=== PATIENT | female | born 2000 | race Caucasian/White ===

== ENCOUNTER 2019-03-22 15:36 | Emergency (ER) | payer MEDICAID, SELFPAY ==
[2019-03-22 15:37] VITALS: BP 106/63; PULSE 123; RESP 17; TEMP 36.7; O2SAT 98; BMI 35.6
--- NOTE | 2019-03-22 16:00 | ED.VISSUMM ---
- ER Visit Summary Date of Service: 03/22/19 Chief Complaint: Abdominal pain, nausea, vomiting History of Present Illness: The patient is a 18 F who is currently 19 weeks . Patient woke this morning with lower abdominal cramping, nausea, vomiting, and diarrhea. She denies any dysuria. No measured fever. She denies vaginal bleeding and has felt normal movement. Physical Examination: Vital signs significant for heart rate of 123, otherwise unremarkable. Patient lying in bed no acute distress. She is nontoxic-appearing. Heart is tachycardic and regular. Lungs sounds clear. Abdomen soft and gravid. She has minimal suprapubic tenderness. No guarding or rebound. Hypoactive bowel sounds are present throughout. Test Results: CBC was a white count of 14.2 with 95% neutrophils. Chemistry studies unremarkable. Urinalysis shows 150 ketones with 0-5 white cells and 0-5 epithelials. heart tones are 152. Emergency Department Course and Treatment: Patient is given IV fluids and Phenergan. On repeat evaluation she feels significant improved. She is able to tolerate p.o. challenge. Repeat heart rate is 84. I will speak with OB to update them on the patient's current symptoms. Patient be discharged with a prescription for Phenergan. Treatment Plan: [] Disposition: Discharge Impression: 1. Viral gastroenteritis 2. Second trimester This note was generated with [employer] dictation software. It may contain incorrect words, spelling, and punctuation that were not noted in review of the chart prior to signing ED Disposition - Plan for ED Patient: Disposition: Home or Assisted Living Instructions: ED Gastroenteritis Viral Prescriptions: proMETHazine tablet [Phenergan] 25 mg PO Q6H PRN PRN #10 tablet PRN Reason: Nausea Referrals: Keturah Blancas DO [STAFF PHYSICIAN] - 3-5 Days
[2019-03-22] MEDS: proMETHazine 25 MG/ML Syringe 12.5 MG IV (16:23)
[2019-03-22] MEDS: 0.9% Normal Saline 1,000 ML 1000 ML IV (16:23)
[2019-03-22 16:37] LABS: Mucous, Urine 0 SEEN /hpf (<or=2+); Red Blood Cells-Urine 0 SEEN /hpf (0-5)
[2019-03-22 16:42] LABS: Absolute Lymphocyte Count 0.32 X10^3/ul (0.83-4.51); Absolute Neutrophil Count 13.5 X10^3/uL (2.0-7.7); Basophil# 0.02 X10^3/uL; Basophil% 0.1 % (0-1); Eosinophil# 0.01 X10^3/uL; Eosinophils% 0.1 % (0-5); Hematocrit 37.9 % (37-47); Hemoglobin 13.3 g/dl (12.0-15.0); Lymphocyte # 0.32 X10^3/ul (4.0); Lymphocyte % 2.2 % (19-41); Mean Corp Hgb Conc 35.1 g/gl (32-36); Mean Corpuscular Hgb 30.9 pg (27.0-32.0); Mean Corpuscular Volume 88.1 fL (81-99); Monocyte# 0.37 X10^3/uL; Monocyte% 2.6 % (0-10); Neutrophil # 13.47 X10^3/uL (2.7-7.7); Neutrophil % 94.7 % (47-70); Platelet Count 197 K/mm3 (150-450); RBC Distribution Width SD 40.5 fl (35.1-43.9); White Blood Count 14.2 K/mm3 (4.4-11.0)
[2019-03-22 16:47] LABS: Anion Gap 10 (5-15); BUN 9 mg/dL (7-18); BUN/Creat Ratio 15.3 RATIO (10-20); Calcium,Total 8.9 mg/dL (8.5-10.1); Chloride 106 mmol/L (98-107); Creatinine, Serum 0.59 mg/dL (0.55-1.02); EST Glomerular Filtration Rate 138 mL/min (>60); Est Glom Filt Rate - Afr Amer 167 mL/min (>60); Estimated Creatinine Clearance 131.34 ml/min; Glucose 88 mg/dL (74-106); Potassium 3.9 mmol/L (3.5-5.1); Sodium Level 137 mmol/L (136-145)
[2019-03-22 16:51] LABS: Differential Indicated SCAN CRITERIA MET; POSITIVE COUNT NO; POSITIVE DIFFERENTIAL YES; POSITIVE MORPHOLOGY NO
[2019-03-22 17:09] LABS: Color, Urine Yellow (Yellow); Glucose, Dipstick Normal (Normal); Leukocyte Esterase-Dipstick 25 /ul (Negative); Nitrite-Dipstick Negative (Negative); Occult Blood-Urine Negative /ul (Negative); Protein-Dipstick Negative (Negative); Specific Gravity, Urine 1.015 (1.002-1.030); Urine Clarity Clear (Clear); Urine Urobilinogen Normal (Normal)
[2019-03-22 17:10] LABS: Urine Bilirubin Dipstick 1 mg/dL (Negative)
[2019-03-22 17:11] LABS: Differential Comment SCANNED
[2019-03-22 17:11] LABS: Ketone-Dipstick 150 mg/dl (Negative)
[2019-03-22 17:14] LABS: Bacteria 1+ /hpf (None Seen); Squamous Epithelial Cells - UA 0-5 SEEN /hpf (5-10); White Blood Cells 0-5 SEEN /hpf (0-5)
[2019-03-22 17:46] VITALS: BP 108/58; PULSE 84; RESP 18; O2SAT 99
[2019-03-22 18:38] VITALS: BP 99/56; PULSE 85; RESP 16; O2SAT 100
== END 2019-03-22 18:39 | disposition home or self-care (01) ==
PROVIDERS: Emergency Provider Emergency Medicine
DX: O98.512 Other viral diseases complicating pregnancy, second trimester (principal); A08.4 Viral intestinal infection, unspecified; Z3A.19 19 weeks gestation of pregnancy; Z87.891 Personal history of nicotine dependence
CPT/HCPCS: 80048; 81001; 85025; 96361; 96374; 99284; J7030

== ENCOUNTER 2019-04-27 15:55 | Inpatient (IN) | payer MEDICAID, SELFPAY ==
[2019-04-27 15:57] VITALS: BP 111/68; PULSE 144; RESP 18; TEMP 37.5; O2SAT 99; BMI 36.1
[2019-04-27] MEDS: Ondansetron 4 MG/2 ML Vial IV (16:52)
[2019-04-27] MEDS: Morphine 4 MG/ML Syringe IV (16:52)
[2019-04-27 16:56] LABS: Absolute Lymphocyte Count 0.53 X10^3/ul (0.83-4.51); Absolute Neutrophil Count 18.4 X10^3/uL (2.0-7.7); Basophil# 0.01 X10^3/uL; Hematocrit 30.7 % (37-47); Hemoglobin 10.7 g/dl (12.0-15.0); Lymphocyte # 0.53 X10^3/ul (4.0); Lymphocyte % 2.5 % (19-41); Mean Corp Hgb Conc 34.9 g/gl (32-36); Mean Corpuscular Hgb 31.6 pg (27.0-32.0); Mean Corpuscular Volume 90.6 fL (81-99); Mean Platelet Vol. 10.3 fl (6.2-12.0); Monocyte# 1.94 X10^3/uL; Monocyte% 9.3 % (0-10); Neutrophil % 87.8 % (47-70); Platelet Count 189 K/mm3 (150-450); RBC Distribution Width CV 13.6 % (11.6-14.6); RBC Distribution Width SD 44.5 fl (35.1-43.9); Red Blood Count 3.39 M/mm3 (4.2-5.4)
[2019-04-27 16:57] LABS: Differential Indicated SCAN CRITERIA MET; POSITIVE COUNT NO; POSITIVE DIFFERENTIAL YES; POSITIVE MORPHOLOGY NO
[2019-04-27 17:01] LABS: Anion Gap 11 (5-15); BUN 7 mg/dL (7-18); BUN/Creat Ratio 10.2 RATIO (10-20); Calcium,Total 8.8 mg/dL (8.5-10.1); Chloride 103 mmol/L (98-107); Creatinine, Serum 0.69 mg/dL (0.55-1.02); EST Glomerular Filtration Rate 115 mL/min (>60); Est Glom Filt Rate - Afr Amer 139 mL/min (>60); Estimated Creatinine Clearance 112.31 ml/min; Glucose 94 mg/dL (74-106); Potassium 3.4 mmol/L (3.5-5.1); Sodium Level 136 mmol/L (136-145)
[2019-04-27 17:24] LABS: Color, Urine Amber (Yellow); Glucose, Dipstick Normal (Normal); Ketone-Dipstick 50 mg/dl (Negative); Leukocyte Esterase-Dipstick 100 /ul (Negative); Nitrite-Dipstick Negative (Negative); Occult Blood-Urine 10 /ul (Negative); Protein-Dipstick 100 mg/dl (Negative); Urine Clarity Sl. Cloudy (Clear); Urine Urobilinogen 4 mg/dl (Normal)
[2019-04-27 17:32] LABS: Urine Bilirubin Dipstick 1 mg/dL (Negative)
[2019-04-27 17:41] LABS: White Blood Cells 10-25 SEEN /hpf (0-5)
[2019-04-27 17:42] LABS: Bacteria 3+ /hpf (None Seen); Mucous, Urine 1+ /hpf (<or=2+); Red Blood Cells-Urine 0-5 SEEN /hpf (0-5); Squamous Epithelial Cells - UA 0-5 SEEN /hpf (5-10)
[2019-04-27] MEDS: 0.9% Normal Saline 1,000 ML 150 ML IV (18:05)
[2019-04-27 18:07] VITALS: BP 116/66; PULSE 106; RESP 16; TEMP 38.5; O2SAT 100
[2019-04-27 18:09] VITALS: BP 116/66; PULSE 109; RESP 16; O2SAT 100
--- NOTE | 2019-04-27 18:12 | ED.RN ---
dr white consulted about possible sepsis. states she is not septic. just with julio. antibiotic order. waiting additional orders.
--- NOTE | 2019-04-27 18:26 | ED.VISSUMM ---
- ER Visit Summary Date of Service: 04/27/19 Chief Complaint: Right flank pain History of Present Illness: The patient is a 18 F who is currently 24 weeks . She reports right back pain for the past couple of days. It is worse with movement. She denies any injury. She does report having a fever yesterday and today has had some chills. She last took Tylenol 6 hours prior to my evaluation. She denies any urinary symptoms. She has been feeling normal movement. Physical Examination: Blood pressure is 111/68, temperature 99.5 TA, heart rate 144, respiratory rate 18, pulse ox 99% on room air. The time of my examination her temperature is 99.2 orally and her heart rate is 128. Patient is sitting upright in bed no acute distress. She is nontoxic appearing. Head and neck examination is unremarkable. Heart is tachycardic and regular. Lung sounds are clear. Abdomen is soft and nontender. Back examination reveals right CVA tenderness. Test Results: CBC was a white count of 21,000 with 88% neutrophils. Hemoglobin is 10.7. Chemistry studies significant for potassium 3.4. Urinalysis does show 10-25 white cells with 3+ bacteria. Emergency Department Course and Treatment: Patient was given morphine and Zofran for pain and nausea along with IV fluids. On my initial repeat examination blood pressure is 121/67 with a heart rate of 108. heart tones are measured at 152. Patient was ordered a dose of IV Rocephin, but before it was hung temperature was rechecked and is 101.3. Patient is given Tylenol this time along with ordering of lactic acid and blood cultures. I spoke with Marleny Morgan, on-call for [facility] DIGITAL MARKETING COORDINATOR. Patient will be admitted to [facility] [place] under Dr. Chen. Treatment Plan: [] Disposition: Admit Impression: 1. Pyelonephritis 2. 24-week This note was generated with [employer] dictation software. It may contain incorrect words, spelling, and punctuation that were not noted in review of the chart prior to signing ED Disposition - Plan for ED Patient: Referrals: Care Physician,No Primary [Primary Care Provider] -
--- NOTE | 2019-04-27 18:29 | ED.DCSUM_ITS ---
- ER Visit Summary Date of Service: 04/27/19 Chief Complaint: Right flank pain History of Present Illness: The patient is a 18 F who is currently 24 weeks . She reports right back pain for the past couple of days. It is worse with movement. She denies any injury. She does report having a fever yesterday and today has had some chills. She last took Tylenol 6 hours prior to my evaluation. She denies any urinary symptoms. She has been feeling normal movement. Physical Examination: Blood pressure is 111/68, temperature 99.5 TA, heart rate 144, respiratory rate 18, pulse ox 99% on room air. The time of my examination her temperature is 99.2 orally and her heart rate is 128. Patient is sitting upright in bed no acute distress. She is nontoxic appearing. Head and neck examination is unremarkable. Heart is tachycardic and regular. Lung sounds are clear. Abdomen is soft and nontender. Back examination reveals right CVA tenderness. Test Results: CBC was a white count of 21,000 with 88% neutrophils. Hemoglobin is 10.7. Chemistry studies significant for potassium 3.4. Urinalysis does show 10-25 white cells with 3+ bacteria. Emergency Department Course and Treatment: Patient was given morphine and Zofran for pain and nausea along with IV fluids. On my initial repeat examination blood pressure is 121/67 with a heart rate of 108. heart tones are measured at 152. Patient was ordered a dose of IV Rocephin, but before it was hung temperature was rechecked and is 101.3. Patient is given Tylenol this time along with ordering of lactic acid and blood cultures. I spoke with Marleny Morgan, on-call for [facility] HAND MODEL. Patient will be admitted to [facility] [place] under Dr. Chen. Treatment Plan: [] Disposition: Admit Impression: 1. Pyelonephritis 2. 24-week This note was generated with [employer] dictation software. It may contain incorrect words, spelling, and punctuation that were not noted in review of the chart prior to signing ED Disposition - Plan for ED Patient: Referrals: Care Physician,No Primary [Primary Care Provider] -
--- NOTE | 2019-04-27 18:39 | NURSING ---
2 attempts made to draw second set of cultures. second rn to attempt. jessy solis rn [id number]
[2019-04-27] MEDS: Acetaminophen 500 MG Tablet 1000 MG PO ×2 (18:44→23:27)
[2019-04-27] MEDS: Ceftriaxone 1 GM/50 ML BAG IV (18:50)
[2019-04-27 18:56] VITALS: BP 115/69; PULSE 119; RESP 16; O2SAT 100
[2019-04-27 19:00] LABS: Lactic Acid 1.1 mmol/L (0.4-2.0)
[2019-04-27 19:15] VITALS: BP 102/63; PULSE 118; RESP 19; TEMP 39.4; O2SAT 99
--- NOTE | 2019-04-27 19:41 | PCM.HP.OB ---
<Marleny Morgan - Last Filed: 04/27/19 20:18> - Problem List (1) Pyelonephritis affecting in second trimester Status: Acute (2) 24 weeks gestation of Status: Acute History Date of Admission: 04/27/19 Final HOLLI: 05/11/19 Gestational age: 38 Weeks and 0 Days History of this : This is a 18 year-old, G [1], P [0], at 24 weeks 6 days gestational age by ultrasound. Presented to ER with complaint of right sided flank pain for past couple of days and worse with movement. No recent injury. Reported in ER she had a fever yesterday with chills. Denied any uriary symptoms. Good movement, denies abdominal pain or contractions, no leakage of fluid. Upon presentation was tachycardic, febrile and had right sided CVAT tenderness. CBC showed elevated WBC of 21. Decision to admit to L&D for pyelonephritis. Upon presentation to L&D, patient comfortable, rating pain 3/10. Partner at bedside. Allergies No Known Allergies Allergy (Verified 03/22/19 15:37) Home Medications: Home Medications Vits [Prenatabs FA] 1 tablet PO DAILY 03/22/19 Smoking Status: Former smoker Alcohol: None History Past Pregnancies: Past Pregnancies Delivery Date Name GA/Weeks Outcome Route Weight Infant Gender Labor Length Anesthesia Delivery Location Provider FOB Review of Systems Constitutional: Denies: Chills, Fever, Weight Change Eyes: Denies: Blurred vision HEENT: Denies: Head Aches, Sinus Congestion, Sinus Drainage Cardiovascular: Denies: Chest Pain, Palpitations Respiratory: Denies: Cough, Shortness of breath at rest, Sputum production Gastrointestinal: Reports: - - Right sided CVAT. No left CVAT. Denies: Abdominal Pain, Nausea, Vomiting Genitourinary: Denies: Dysuria, Frequency, Hematuria, Urgency Physical Exam Vitals: Vital Signs Temp Pulse Resp BP Pulse Ox 102.9 F H 118 H 19 H 102/63 99 04/27/19 19:15 04/27/19 19:15 04/27/19 19:15 04/27/19 19:15 04/27/19 19:15 General: Alert, Oriented x3, No apparent distress HEENT: Atraumatic, Normocephalic Cardiovascular: Regular Rhythm, No murmurs, - - Tachycardic 113 Lungs: Clear to auscultation, Normal air movement, No rhonchi, No wheeze Abdomen: Bowel Sounds Present, Soft, Non Tender, - - Right sided CVAT. No left sided CVAT Extremities:: No edema Neurological: Deep Tendon Reflexes 2+/4 and Symmetrical Assessment/Plan All Active Problems Pyelonephritis affecting in second trimester (Acute) 24 weeks gestation of (Acute) This is a 18 year-old, G [1], P [0], at weeks gestational age. A:Acute Pyelonephritis P: 1) Admit to L&D. 2) Consulted regarding admission and referral for management. Orders received and initial assessment completed. 3) Gentamcin 5mg/kg x 1 IVBP, pharmacy to dose. 4) Zofran 4mg IV q6h for nausea 5) Oxycodone 5mg PO q6h for pain 6) CBC in am 7) Tylenol 1000mg PO q6h for fever. Temp down from 102.9 in ER to 101.4 upon arrival to L&D <Partha Chen - Last Filed: 04/27/19 22:47> History History of this : This is a 18 year-old, G [], P [], at weeks gestational age. Allergies No Known Allergies Allergy (Verified 04/27/19 20:25) History Past Pregnancies: Past Pregnancies Delivery Date Name GA/Weeks Outcome Route Weight Gender Labor Length Anesthesia Delivery Location Provider FOB Physical Exam Vitals: Vital Signs Temp Pulse Resp BP Pulse Ox 102.9 F H 118 H 19 H 102/63 99 04/27/19 19:15 04/27/19 19:15 04/27/19 19:15 04/27/19 19:15 04/27/19 19:15 Assessment/Plan Patient seen & examined. Patient clinically improving. Agree with above. Plan of care discussed with Marleny Morgan earlier. Will start ancef IV.
[2019-04-27 20:26] VITALS: BMI 36.0
[2019-04-27] MEDS: proMETHazine 25 MG/ML Syringe IV (23:27)
[2019-04-27] MEDS: DiphenhydrAMINE 25 MG Capsule PO (23:27)
[2019-04-28] MEDS: 0.9% Normal Saline 1,000 ML 150 ML IV ×2 (04:55→12:23)
[2019-04-28] MEDS: Cefazolin 2 GM in 0.9% Normal Saline 100 ML IV ×3 (06:14→21:51)
[2019-04-28 07:10] LABS: Absolute Lymphocyte Count 0.67 X10^3/ul (0.83-4.51); Absolute Neutrophil Count 12.8 X10^3/uL (2.0-7.7); Basophil# 0.02 X10^3/uL; Basophil% 0.1 % (0-1); Hematocrit 26.6 % (37-47); Hemoglobin 9.5 g/dl (12.0-15.0); Lymphocyte # 0.67 X10^3/ul (4.0); Lymphocyte % 4.6 % (19-41); Mean Corp Hgb Conc 35.7 g/gl (32-36); Mean Corpuscular Hgb 32.6 pg (27.0-32.0); Mean Corpuscular Volume 91.4 fL (81-99); Mean Platelet Vol. 10.2 fl (6.2-12.0); Monocyte# 1.13 X10^3/uL; Monocyte% 7.7 % (0-10); Neutrophil # 12.79 X10^3/uL (2.7-7.7); Neutrophil % 87.1 % (47-70); Platelet Count 146 K/mm3 (150-450); RBC Distribution Width CV 13.8 % (11.6-14.6); RBC Distribution Width SD 45.8 fl (35.1-43.9); Red Blood Count 2.91 M/mm3 (4.2-5.4); White Blood Count 14.7 K/mm3 (4.4-11.0)
[2019-04-28 07:14] LABS: POSITIVE COUNT NO; POSITIVE DIFFERENTIAL NO; POSITIVE MORPHOLOGY NO
[2019-04-28] MEDS: Acetaminophen 500 MG Tablet 1000 MG PO ×2 (08:50→17:13)
--- NOTE | 2019-04-28 17:18 | PCM.PN.OB ---
Patient Problems: Active and Suspected Problems Pyelonephritis affecting in second trimester (Acute) 24 weeks gestation of (Acute) Subjective: Patient reports some back pain. Denies VB/LOF/ctxs. Reports good FM. - Physical Exam General: Alert, Oriented x3 Abdomen: Soft, Non Tender, Non-Distended, Gravid Extremities: No edema, No Calf Tenderness Neurological: Cranial nerves II-XII grossly intact Psych/Mental Status: Normal Affect Vital Signs Temp Pulse Resp BP Pulse Ox 102.9 F H 118 H 19 H 102/63 99 04/27/19 19:15 04/27/19 19:15 04/27/19 19:15 04/27/19 19:15 04/27/19 19:15 Oxygen Delivery Method Room Air Weight: 210 lb Body Mass Index (BMI) 36.0 Intake and Output for Last 24 Hours 04/26/19 04/27/19 04/28/19 23:59 23:59 23:59 Intake Total 1140 / 1140 Balance 1140 / 1140 Laboratory Tests Past 24 Hrs 04/27/19 04/27/19 04/27/19 16:43 17:00 18:23 WBC RBC Hgb Hct MCV MCH MCHC RDW RDW Differential Plt Count MPV Immature Gran % (Auto) Neut % (Auto) Lymph % (Auto) [place] % (Auto) Eos % (Auto) Baso % (Auto) Absolute Neuts (auto) Absolute Lymphs (auto) Total Counted Not Reportable Diff Path Review May foll Lactic Acid 1.1 Urine Color Ellie Urine Clarity Sl. Cloudy Urine pH 5.0 Ur Specific [place] 1.020 Urine Protein 100 H Urine Glucose (UA) Normal Urine Ketones 50 H Urine Occult Blood 10 H Urine Nitrite Negative Urine Bilirubin 1 H Urine Urobilinogen 4 H Ur Leukocyte Esterase 100 H Urine RBC 0-5 SEEN Urine WBC 10-25 SEEN Ur Squamous Epith Cells 0-5 SEEN Urine Bacteria 3+ Urine Mucus 1+ 04/28/19 06:55 WBC 14.7 H RBC 2.91 L Hgb 9.5 L Hct 26.6 L MCV 91.4 MCH 32.6 H MCHC 35.7 RDW 13.8 RDW Differential 45.8 H Plt Count 146 L MPV 10.2 Immature Gran % (Auto) 0.500 Neut % (Auto) 87.1 H Lymph % (Auto) 4.6 L [place] % (Auto) 7.7 Eos % (Auto) 0.0 Baso % (Auto) 0.1 Absolute Neuts (auto) 12.8 H Absolute Lymphs (auto) 0.67 L Total Counted Not Reportable Diff Path Review Lactic Acid Urine Color Urine Clarity Urine pH Ur Specific [place] Urine Protein Urine Glucose (UA) Urine Ketones Urine Occult Blood Urine Nitrite Urine Bilirubin Urine Urobilinogen Ur Leukocyte Esterase Urine RBC Urine WBC Ur Squamous Epith Cells Urine Bacteria Urine Mucus Medical Necessity - Tobacco Use Smoking Status: Former smoker Assessment/Plan All Active Problems Pyelonephritis affecting in second trimester (Acute) 24 weeks gestation of (Acute) 18yo female @ 24 weeks admitted with pyelonephritis ID - contine gentamycin & ancef. Hypokalemia - potassium in IV fluids. Repeat in AM. Encouraged ambulation. FWB - reactive NST for GA.
[2019-04-29 05:03] LABS: Absolute Lymphocyte Count 0.98 X10^3/ul (0.83-4.51); Absolute Neutrophil Count 7.5 X10^3/uL (2.0-7.7); Basophil# 0.02 X10^3/uL; Basophil% 0.2 % (0-1); Eosinophil# 0.02 X10^3/uL; Eosinophils% 0.2 % (0-5); Hematocrit 25.9 % (37-47); Hemoglobin 8.7 g/dl (12.0-15.0); Lymphocyte # 0.98 X10^3/ul (4.0); Lymphocyte % 10.5 % (19-41); Mean Corp Hgb Conc 33.6 g/gl (32-36); Mean Corpuscular Hgb 31.2 pg (27.0-32.0); Mean Corpuscular Volume 92.8 fL (81-99); Mean Platelet Vol. 10.9 fl (6.2-12.0); Monocyte# 0.78 X10^3/uL; Monocyte% 8.4 % (0-10); Neutrophil # 7.49 X10^3/uL (2.7-7.7); Neutrophil % 80.3 % (47-70); Platelet Count 151 K/mm3 (150-450); RBC Distribution Width CV 13.7 % (11.6-14.6); RBC Distribution Width SD 44.9 fl (35.1-43.9); Red Blood Count 2.79 M/mm3 (4.2-5.4); White Blood Count 9.3 K/mm3 (4.4-11.0)
[2019-04-29 05:08] LABS: POSITIVE COUNT NO; POSITIVE DIFFERENTIAL NO; POSITIVE MORPHOLOGY NO
[2019-04-29 05:16] LABS: Anion Gap 11 (5-15); BUN 5 mg/dL (7-18); BUN/Creat Ratio 10.8 RATIO (10-20); Calcium,Total 8.3 mg/dL (8.5-10.1); Chloride 108 mmol/L (98-107); Creatinine, Serum 0.46 mg/dL (0.55-1.02); EST Glomerular Filtration Rate 181 mL/min (>60); Est Glom Filt Rate - Afr Amer 219 mL/min (>60); Estimated Creatinine Clearance 168.46 ml/min; Glucose 86 mg/dL (74-106); Potassium 3.2 mmol/L (3.5-5.1); Sodium Level 139 mmol/L (136-145)
[2019-04-29] MEDS: Cefazolin 2 GM in 0.9% Normal Saline 100 ML IV ×3 (05:57→21:55)
--- NOTE | 2019-04-29 08:46 | PCM.PN.OB ---
Patient Problems: Active and Suspected Problems Pyelonephritis affecting in second trimester (Acute) 24 weeks gestation of (Acute) Subjective: pt seen at bedside, doing well. pt reports no CP, SOB, dizziness. Pt reports only mild right sided back pain. no abdominal pain, no contractions, no VB or LOF. pt reports good FM. - Physical Exam General: Alert, Oriented x3 Abdomen: Soft, Non Tender, Gravid Extremities: No Calf Tenderness Neurological: Cranial nerves II-XII grossly intact Psych/Mental Status: Normal Affect, Appropriate Comment: Mild Right CVA tenderness, Vital Signs Temp Pulse Resp BP Pulse Ox 102.9 F H 118 H 19 H 102/63 99 04/27/19 19:15 04/27/19 19:15 04/27/19 19:15 04/27/19 19:15 04/27/19 19:15 Oxygen Delivery Method Room Air Weight: 95.254 kg Body Mass Index (BMI) 36.0 Intake and Output for Last 24 Hours 04/27/19 04/28/19 04/29/19 23:59 23:59 23:59 Intake Total 1140 / 1140 1506 / 1506 Balance 1140 / 1140 1506 / 1506 Microbiology Past 72 Hours 04/27/19 18:47 Blood Culture - Preliminary Blood Culture (Wb) - Venous Gram negative katya Laboratory Tests Past 24 Hrs 04/29/19 04/29/19 04:45 04:45 WBC 9.3 RBC 2.79 L Hgb 8.7 L Hct 25.9 L MCV 92.8 MCH 31.2 MCHC 33.6 RDW 13.7 RDW Differential 44.9 H Plt Count 151 MPV 10.9 Immature Gran % (Auto) 0.400 Neut % (Auto) 80.3 H Lymph % (Auto) 10.5 L [place] % (Auto) 8.4 Eos % (Auto) 0.2 Baso % (Auto) 0.2 Absolute Neuts (auto) 7.5 Absolute Lymphs (auto) 0.98 Total Counted Not Reportable Sodium 139 Potassium 3.2 L Chloride 108 H Carbon Dioxide 20.0 L Anion Gap 11 BUN 5 L Creatinine 0.46 L Estim Creat Clear Calc 168.46 Est GFR (MDRD) Af Amer 219 Est GFR (MDRD) Non-Af 181 BUN/Creatinine Ratio 10.8 Glucose 86 Calcium 8.3 L Medical Necessity - Tobacco Use Smoking Status: Former smoker Assessment/Plan All Active Problems Pyelonephritis affecting in second trimester (Acute) 24 weeks gestation of (Acute) HD#1- Pyelonephritis, Septicemia 1) continue IV abx-Ancef and Gentamycin 2) Repeat CBC and BMP in early 3) hypokalemia- will Start PO Potassium today 4) IVF - saline lock 5) discussed with patient - will stay overnight to monitor- consider 48hr after last fever 6) Blood cultures- gram neg rods- awaiting susceptibility
[2019-04-29] MEDS: Ferrous Sulfate 325 MG Tablet PO ×2 (11:01→18:09)
[2019-04-29 13:17] LABS: Pathologist Review Reviewed
[2019-04-30 05:44] LABS: Anion Gap 8 (5-15); BUN 5 mg/dL (7-18); BUN/Creat Ratio 12.3 RATIO (10-20); Calcium,Total 8.6 mg/dL (8.5-10.1); Chloride 109 mmol/L (98-107); Creatinine, Serum 0.41 mg/dL (0.55-1.02); EST Glomerular Filtration Rate 210 mL/min (>60); Est Glom Filt Rate - Afr Amer 254 mL/min (>60); Glucose 73 mg/dL (74-106); Potassium 3.6 mmol/L (3.5-5.1); Sodium Level 140 mmol/L (136-145)
[2019-04-30 05:52] LABS: Absolute Lymphocyte Count 1.79 X10^3/ul (0.83-4.51); Absolute Neutrophil Count 4.7 X10^3/uL (2.0-7.7); Basophil# 0.03 X10^3/uL; Basophil% 0.4 % (0-1); Eosinophil# 0.11 X10^3/uL; Eosinophils% 1.5 % (0-5); Hematocrit 25.5 % (37-47); Hemoglobin 8.6 g/dl (12.0-15.0); Lymphocyte # 1.79 X10^3/ul (4.0); Lymphocyte % 24.2 % (19-41); Mean Corp Hgb Conc 33.7 g/gl (32-36); Mean Corpuscular Hgb 31.2 pg (27.0-32.0); Mean Corpuscular Volume 92.4 fL (81-99); Mean Platelet Vol. 10.6 fl (6.2-12.0); Monocyte# 0.75 X10^3/uL; Monocyte% 10.1 % (0-10); Neutrophil # 4.65 X10^3/uL (2.7-7.7); Neutrophil % 62.9 % (47-70); Platelet Count 168 K/mm3 (150-450); RBC Distribution Width CV 13.9 % (11.6-14.6); RBC Distribution Width SD 47.1 fl (35.1-43.9); Red Blood Count 2.76 M/mm3 (4.2-5.4); White Blood Count 7.4 K/mm3 (4.4-11.0)
[2019-04-30 06:06] LABS: POSITIVE COUNT NO; POSITIVE DIFFERENTIAL NO; POSITIVE MORPHOLOGY NO
[2019-04-30] MEDS: Cefazolin 2 GM in 0.9% Normal Saline 100 ML IV ×2 (06:09→14:46)
--- NOTE | 2019-04-30 07:21 | PCM.PN.OB ---
Patient Problems: Active and Suspected Problems Pyelonephritis affecting in second trimester (Acute) 24 weeks gestation of (Acute) Subjective: Pt doing well. She states she feels improved. No fevers, chills, nausea, vomiting, or pain. No ctx, vb, lof. Good FM. - Physical Exam General: Alert, No apparent distress HEENT: Atraumatic Lungs: - - No increased resp effort Abdomen: Soft, Non Tender, Gravid Extremities: No edema Musculoskeletal: - - No CVA tenderness Neurological: Neuro grossly intact Psych/Mental Status: Normal Affect, Appropriate Vital Signs Temp Pulse Resp BP Pulse Ox 102.9 F H 118 H 19 H 102/63 99 04/27/19 19:15 04/27/19 19:15 04/27/19 19:15 04/27/19 19:15 04/27/19 19:15 Oxygen Delivery Method Room Air Weight: 210 lb Body Mass Index (BMI) 36.0 Intake and Output for Last 24 Hours 04/28/19 04/29/19 04/30/19 23:59 23:59 23:59 Intake Total 1140 / 1140 3031 / 3031 Output Total 950 / 950 Balance 1140 / 1140 2081 / 2081 Microbiology Past 72 Hours 04/27/19 17:20 Urine Culture - Preliminary Urine, Clean Catch Mixed Gram Pos & Gram Neg Org 04/27/19 18:47 Blood Culture - Preliminary Blood Culture (Wb) - Venous Gram negative katya Laboratory Tests Past 24 Hrs 04/27/19 04/30/19 04/30/19 16:43 05:15 05:15 WBC 7.4 RBC 2.76 L Hgb 8.6 L Hct 25.5 L MCV 92.4 MCH 31.2 MCHC 33.7 RDW 13.9 RDW Differential 47.1 H Plt Count 168 MPV 10.6 Immature Gran % (Auto) 0.900 Neut % (Auto) 62.9 Lymph % (Auto) 24.2 [place] % (Auto) 10.1 H Eos % (Auto) 1.5 Baso % (Auto) 0.4 Absolute Neuts (auto) 4.7 Absolute Lymphs (auto) 1.79 Total Counted Not Reportable Diff Path Review Reviewed Sodium 140 Potassium 3.6 Chloride 109 H Carbon Dioxide 23.0 Anion Gap 8 BUN 5 L Creatinine 0.41 L Estim Creat Clear Calc 189.00 Est GFR (MDRD) Af Amer 254 Est GFR (MDRD) Non-Af 210 BUN/Creatinine Ratio 12.3 Glucose 73 L Calcium 8.6 Medical Necessity - Tobacco Use Smoking Status: Former smoker Assessment/Plan All Active Problems Pyelonephritis affecting in second trimester (Acute) 24 weeks gestation of (Acute) - Continue IV antibiotics until afebrile for 48 hrs - Labs: WBC 7.4, K normal this AM - Will get NST today - Blood and urine cx's still preliminary - Discussed w/ pt d/c home after afebrile for 48 hrs and after final cx results - Will need total of 10-14 day course of antibiotics, and then daily suppression w/ Macrobid. This was discussed w/ pt
--- NOTE | 2019-04-30 09:03 | DCINST_ITS ---
- Discharge Diagnoses Current Active Problems: Current Active and Chronic Problems Pyelonephritis affecting in second trimester (Acute) 24 weeks gestation of (Acute) You will use the following diet at home:: No restrictions, Regular Discharge Activity: Return to Normal Activity, May Drive, May Shower, May Take a Tub Bath May resume sexual activity in: No Restrictions Weight Bearing Status: Full weight bearing Lifting Restrictions: None Call your doctor if you observe: Fever of 101 or Higher, Shortness of breath, Dizziness, Chest pain, Increased palpitations (irregular heartbeat), Uncontrolled pain Instructions: Pyelonephritis Allergies/Adverse Reactions: Allergies No Known Allergies Allergy (Verified 04/27/19 20:25) Medications to take at Discharge Vits [Prenatabs FA] 1 tablet PO DAILY 03/22/19 Cephalexin [Keflex] 250 mg PO QHS #120 cap 04/30/19 Cephalexin [Keflex] 500 mg PO BID 10 Days #20 cap 04/30/19 The following prescriptions were given: Cephalexin [Keflex] 250 mg PO QHS #120 cap Prescription Printed Cephalexin [Keflex] 500 mg PO BID 10 Days #20 cap Prescription Printed Primary Care Physician: Care Physician,No Primary [Primary Care Provider] - Test Results: Test results from this visit will be discussed in further detail at your follow- up appointment, if applicable. When: In 1-2 weeks after discharge Proposed Discharge Date: 04/30/19
[2019-04-30] MEDS: Ferrous Sulfate 325 MG Tablet PO ×2 (12:42→17:36)
== END 2019-04-30 19:10 | disposition home or self-care (01) | DRG 833 ==
LOC: ED 16:23 → WP 19:14 → ED 19:31 → WPOUT 19:32 → WP 19:32 → WPOUT 04-29 08:26
PROVIDERS: Advanced Practice Midwife; Obstetrics & Gynecology; Admitting Provider Obstetrics & Gynecology; Emergency Provider Emergency Medicine; Visit Provider Obstetrics & Gynecology
DX: O23.02 Infections of kidney in pregnancy, second trimester (principal); O99.282 Endocrine, nutritional and metabolic diseases complicating pregnancy, second trimester; E87.6 Hypokalemia; Z3A.24 24 weeks gestation of pregnancy; Z87.891 Personal history of nicotine dependence
CPT/HCPCS: 36415; 59025; 59050; 80048; 81001; 83605; 85025; 87040; 87077; 87086; 87088; 87186; 99218; 99285; J7030; J7040; A4216; G0378; J2405

== ENCOUNTER 2019-08-16 13:55 | Inpatient (IN) | payer MEDICAID, SELFPAY ==
[2019-08-16 13:06] VITALS: BMI 38.9
[2019-08-16] MEDS: Lactated Ringers 1,000 ML 200 ML IV (14:05)
[2019-08-16 14:41] LABS: Absolute Lymphocyte Count 1.52 X10^3/uL (0.83-4.51); Absolute Neutrophil Count 14.4 X10^3/uL (2.0-7.7); Basophil# 0.03 X10^3/uL; Basophil% 0.2 % (0-1); Eosinophil# 0.04 X10^3/uL; Eosinophils% 0.2 % (0-5); Hematocrit 35.4 % (37-47); Lymphocyte # 1.52 X10^3/ul (4.0); Lymphocyte % 8.9 % (19-41); Mean Corp Hgb Conc 33.9 g/dL (32-36); Mean Corpuscular Hgb 30.9 pg (27.0-32.0); Mean Corpuscular Volume 91.2 fL (81-99); Mean Platelet Vol. 10.8 fl (6.2-12.0); Monocyte% 5.8 % (0-10); NRBC Flagged by Analyzer 0 % (0-5); Neutrophil # 14.43 X10^3/uL (2.7-7.7); Neutrophil % 84.3 % (47-70); Platelet Count 196 K/mm3 (150-450); RBC Distribution Width CV 13.2 % (11.6-14.6); RBC Distribution Width SD 43.5 fl (35.1-43.9); Red Blood Count 3.88 M/mm3 (4.2-5.4); White Blood Count 17.1 K/mm3 (4.4-11.0)
[2019-08-16] MEDS: Oxytocin 30 units/NS 500 ml 30 UNITS/500 ML IV.SOLN IV (15:57)
[2019-08-16] MEDS: Mag Hydrox/Al Hydrox/Simeth 30 ML UDC PO (17:41)
[2019-08-16] MEDS: Nalbuphine 10 MG/ML Ampul IV (18:08)
[2019-08-16] MEDS: Ondansetron 4 MG/2 ML Vial IV (18:41)
[2019-08-16] MEDS: Lactated Ringers 1,000 ML 50 ML IV (19:15)
[2019-08-16] MEDS: Oxytocin 30 units/NS 500 ml 30 UNITS/500 ML IV.SOLN 334 UNITS IV (20:21)
[2019-08-16] MEDS: Methylergonovine 0.2 MG/ML Ampul IM (20:54)
--- NOTE | 2019-08-16 21:06 | PCM.HP.OB ---
History Date of Admission: 04/27/19 Final HOLLI: 08/11/19 Final HOLLI Source: [place] <20 weeks Gestational age: 40 Weeks and 5 Days History of this : This is a 18 year-old, G 1P0 at 40.5 weeks presents complaining of contractions. Patient was found to be 5 cm at initial assessment and progressed to 6 cm. Patient was Kept for labor. Allergies No Known Allergies Allergy (Verified 04/27/19 20:25) Home Medications: Home Medications Vits [Prenatabs FA] 1 tablet PO DAILY 03/22/19 Cephalexin [Keflex] 250 mg PO QHS #120 cap 04/30/19 Smoking Status: Former smoker Alcohol: None Substance Use Type: Marijuana Number of Fetus(es): 1 History Past Pregnancies: Past Pregnancies Delivery Date Name GA/Weeks Outcome Route Weight Gender Labor Length Anesthesia Delivery Location Provider FOB Review of Systems Constitutional: Denies: Anorexia Cardiovascular: Denies: Chest Pain Gastrointestinal: Reports: Abdominal Pain - from ctx Physical Exam General: Alert, Oriented x3 Abdomen: Soft, Non Tender, Gravid Neurological: Cranial nerves II-XII grossly intact AUTOMATION TECHNICIAN: Normal external genitalia Estimated gestational size: Appropriate for gestational size Presentation: Cephalic Cervix Dilation (cm): 6 Station: -2 Effacement (%): 70 Assessment/Plan All Active Problems Pyelonephritis affecting in second trimester (Acute) 24 weeks gestation of (Acute) This is a 18 year-old, G 1P0 at 40.5 weeks in labor Admit to labor and delivery Monitor heart rate and toco Pain management if requested Anticipate a normal spontaneous vaginal delivery
--- NOTE | 2019-08-16 21:09 | PCM.OPRPT ---
Vaginal Delivery Maternal Presentation: Active Labor Amniotic Membrane Rupture Type: Artificial Amniotic Fluid Description: Clear Final HOLLI: 08/11/19 Final HOLLI Source: [place] <20 weeks Gestational age: 40 Weeks and 5 Days Date of Procedure: 08/16/19 Pre-Operative Diagnosis: term gestation, active labor Post-Operative Diagnosis: live male Surgery/ Procedure Performed: Spontaneous Vaginal Delivery Type of Anesthesia: None Description of Procedure: of live male infant born without complication. Good maternal pushing efforts. head delivered then with gentle downward traction and good maternal effort the anterior shoulder was delivered without complication. Placed on mother's chest delayed cord clamping performed. Presentation: Vertex Placental Delivery Description: Spontaneous Placenta Disposition: [facility] Cord Vessel Description: 3 Vessels Cord Entanglement: Around neck x 1, loose Estimated Blood Loss: 300 Infant A gender: Male (1 minute): 9 (5 minute): 9 Episiotomy Description: None Laceration: Vaginal Extension/lac - repaired with 2-0 vicryl - lidocaine injected prior to repair, 2nd degree Medications given after delivery: IV Pitocin Complications: None
--- NOTE | 2019-08-16 22:51 | NURSING ---
this RN gave report to mary NEW and she is to assume pt care at this time
[2019-08-16] MEDS: 0.9% Saline Lock 10 ML Syringe IV (23:11)
[2019-08-16 23:13] VITALS: BP 118/62; PULSE 86; RESP 18; TEMP 36.9
[2019-08-17 04:22] VITALS: BP 108/57; PULSE 98; RESP 18; TEMP 36.6; O2SAT 97
[2019-08-17 05:12] LABS: Amphetamine Urine VISTA NEGATIVE (<1000 ng/mL); Barbiturate Urine VISTA NEGATIVE (< 200 ng/mL); Benzodiazepine Urine VISTA NEGATIVE (< 200 ng/mL); Cocaine Urine VISTA NEGATIVE (< 300 ng/mL); Ecstacy Urine VISTA NEGATIVE (< 500 ng/mL); Methadone Urine VISTA NEGATIVE (< 300 ng/mL); PCP Urine VISTA NEGATIVE (< 25 ng/mL); THC Urine VISTA NEGATIVE (< 50 ng/mL); Vista UDS pH Range 6
--- NOTE | 2019-08-17 07:57 | PCM.PN.OB ---
Subjective: pt seen at bedside, doing well. pt reports good pain control, lochia mild. breast feeding well. VOiding w/o difficulty. - Physical Exam General: Alert, Oriented x3 Abdomen: Soft, Non Tender, Non-Distended, - - fundus firm Extremities: No Calf Tenderness Vital Signs Temp Pulse Resp BP Pulse Ox 97.8 F 98 18 108/57 L 97 08/17/19 04:22 08/17/19 04:22 08/17/19 04:22 08/17/19 04:22 08/17/19 04:22 Oxygen Delivery Method Room Air Weight: 102.965 kg Body Mass Index (BMI) 38.9 Intake and Output for Last 24 Hours 08/15/19 08/16/19 08/17/19 23:59 23:59 23:59 Intake Total 2113.50 / 2113.50 Output Total 600 / 600 400 / 400 Balance 1513.50 / 1513.50 -400 / -400 Laboratory Tests Past 24 Hrs 08/16/19 08/16/19 08/17/19 14:05 14:05 04:10 WBC 17.1 H RBC 3.88 L Hgb 12.0 Hct 35.4 L MCV 91.2 MCH 30.9 MCHC 33.9 RDW Std Deviation 43.5 RDW Coeff of Satish 13.2 Plt Count 196 MPV 10.8 Immature Gran % (Auto) 0.600 Neut % (Auto) 84.3 H Lymph % (Auto) 8.[address] [place] % (Auto) 5.8 Eos % (Auto) 0.2 Baso % (Auto) 0.2 Absolute Neuts (auto) 14.4 H Absolute Lymphs (auto) 1.52 Nucleated RBC % 0 Urine Opiates Screen NEGATIVE Urine Methadone Screen NEGATIVE Ur Barbiturates Screen NEGATIVE Ur Phencyclidine Scrn NEGATIVE Ur Amphetamines Screen NEGATIVE U Methamphetamin-MDMA NEGATIVE U Benzodiazepines Scrn NEGATIVE Urine Cocaine Screen NEGATIVE U Cannabinoids Screen NEGATIVE Ur Drug Screen Comment Blood Type A POSITIVE Antibody Screen NEGATIVE Medical Necessity - Tobacco Use Smoking Status: Former smoker Assessment/Plan All Active Problems Pyelonephritis affecting in second trimester (Acute) 24 weeks gestation of (Acute) PPD#1, doing well routine care pain mgmt
[2019-08-17 08:10] VITALS: BP 106/55; PULSE 91; RESP 16; TEMP 36.3; O2SAT 96
[2019-08-17 12:20] VITALS: BP 107/66; PULSE 95; RESP 16; TEMP 36.2; O2SAT 97
[2019-08-17 15:30] VITALS: BP 110/62; PULSE 111; RESP 16; TEMP 36.3; O2SAT 96
[2019-08-17 20:05] VITALS: BP 113/58; PULSE 96; RESP 16; TEMP 36.3
[2019-08-18 02:00] VITALS: BP 98/56; PULSE 91; RESP 15; TEMP 36.5
[2019-08-18 08:30] VITALS: BP 100/62; PULSE 86; RESP 18; TEMP 36.6; O2SAT 97
--- NOTE | 2019-08-18 08:51 | PCM.PN.OB ---
Subjective: Patient seen at bedside, doing well. Patient reports good pain control. Mild lochia. Voiding without difficulty. Is breast and bottlefeeding. - Physical Exam General: Alert, Oriented x3 Abdomen: Soft, Non Tender, Non-Distended, - - fundus firm Extremities: No Calf Tenderness Vital Signs Temp Pulse Resp BP Pulse Ox 97.8 F 86 18 100/62 97 08/18/19 08:30 08/18/19 08:30 08/18/19 08:30 08/18/19 08:30 08/18/19 08:30 Oxygen Delivery Method Room Air Weight: 102.965 kg Body Mass Index (BMI) 38.9 Intake and Output for Last 24 Hours 08/16/19 08/17/19 08/18/19 23:59 23:59 23:59 Intake Total 2113.50 / 2113.50 Output Total 600 / 600 400 / 400 Balance 1513.50 / 1513.50 -400 / -400 Medical Necessity - Tobacco Use Smoking Status: Former smoker Assessment/Plan All Active Problems Pyelonephritis affecting in second trimester (Acute) 24 weeks gestation of (Acute) PPD#2, doing well routine care pain mgmt [facility]
--- NOTE | 2019-08-18 08:53 | DCINST_ITS ---
Discharge Diet: No Restrictions Discharge Activity: Return to Normal Activity, May not drive while taking narcotic pain medications., May Shower May resume sexual activity in: 4-6 weeks Additional Activity Instructions:: Nothing in the vagina for 4-6 weeks. You may return to work/school in 6 weeks. Call your doctor if your incision/area has: Continuous Slow Oozing, Sudden Increased Bleeding, Increased Pain/ Swelling, Increased Redness, Foul Smelling Discharge Additional Instructions: If you experience any of the following, contact your healthcare provider. * Bleeding that soaks a pad every hour for 2 hours * Fever 100.4 or higher * Unrelieved incision or abdominal pain * Swelling, redness, discharge or bleeding from your incision or episiotomy site * Your incision begins to separate * Problems urinating (including inability to urinate or burning while urinating). * Visual changes * Severe headache * Flu-like symptoms * Pain or redness in one of both of your breasts * Pain, warmth, tenderness or swelling in your legs, especially the calf area * Frequent nausea and vomiting * Symptoms of depression or anxiety If you experience any of the following, call 911 or go to the nearest Emergency Room. * Chest pain * Problems breathing * Seizure activity * Partial or complete paralysis of a body part, slurred speech, weakness or drooping of the face, or a sudden inability to walk or hold your balance Allergies/Adverse Reactions: Allergies No Known Allergies Allergy (Verified 04/27/19 20:25) Medications to take at Discharge Vits [Prenatabs FA ] 1 tablet PO DAILY 03/22/19 Ibuprofen [Motrin] 600 mg PO Q6H PRN PRN #30 tab 08/18/19 The following prescriptions were given: Ibuprofen [Motrin] 600 mg PO Q6H PRN PRN #30 tab PRN Reason: Pain Score 1-3/10 Transmission Status: Pending to [facility] When: Call to make an appointment with your doctor in 6 weeks. If you had elevated Blood Pressure or 4th degree laceration you will need to be seen in 2 weeks. Primary Care Physician: Care Physician,No Primary [Primary Care Provider] - Test Results: Test results from this visit will be discussed in further detail at your follow- up appointment, if applicable.
[2019-08-18] MEDS: MedroxyPROGESTERone 150 MG/ML Syringe IM (12:50)
[2019-08-18 13:20] VITALS: BP 96/51; PULSE 98; RESP 16; TEMP 36.3; O2SAT 97
== END 2019-08-18 13:45 | disposition home or self-care (01) | DRG 560 ==
LOC: WP 14:11 → LAB 14:11
PROVIDERS: Admitting Provider Obstetrics & Gynecology; Referring Provider Obstetrics & Gynecology; Visit Provider Obstetrics & Gynecology
DX: O69.81X0 Labor and delivery complicated by cord around neck, without compression, not applicable or unspecified (principal); O70.1 Second degree perineal laceration during delivery; Z3A.40 40 weeks gestation of pregnancy; Z37.0 Single live birth; Z87.891 Personal history of nicotine dependence
CPT/HCPCS: 59025; 59050; 80307; 85025; 86850; 86900; 86901; 99218; J7120; A4216; G0378; J2405

== ENCOUNTER 2020-02-18 02:56 | Emergency (ER) | payer SELFPAY ==
[2020-02-18 02:56] VITALS: BP 133/85; PULSE 87; RESP 16; TEMP 36.6; O2SAT 98; BMI 38.6
[2020-02-18] MEDS: Ketorolac 30 MG/ML Syringe 15 MG IV (03:11)
[2020-02-18] MEDS: Ondansetron 4 MG/2 ML Vial IV (03:12)
[2020-02-18 03:15] LABS: Absolute Lymphocyte Count 2.92 X10^3/uL (0.83-4.51); Absolute Neutrophil Count 7.2 X10^3/uL (2.0-7.7); Basophil# 0.05 X10^3/uL; Basophil% 0.4 % (0-1); Eosinophil# 0.21 X10^3/uL; Eosinophils% 1.9 % (0-5); Hematocrit 35.9 % (37-47); Hemoglobin 11.7 g/dL (12.0-15.0); Lymphocyte # 2.92 X10^3/ul (4.0); Lymphocyte % 26.1 % (19-41); Mean Corp Hgb Conc 32.6 g/dL (32-36); Mean Corpuscular Hgb 28.1 pg (27.0-32.0); Mean Corpuscular Volume 86.3 fL (81-99); Mean Platelet Vol. 10.5 fl (6.2-12.0); Monocyte# 0.74 X10^3/uL; Monocyte% 6.6 % (0-10); NRBC Flagged by Analyzer 0 % (0-5); Neutrophil # 7.22 X10^3/uL (2.7-7.7); Neutrophil % 64.7 % (47-70); Platelet Count 235 K/mm3 (150-450); RBC Distribution Width SD 40.6 fl (35.1-43.9); Red Blood Count 4.16 M/mm3 (4.2-5.4); White Blood Count 11.2 K/mm3 (4.4-11.0)
[2020-02-18 03:31] LABS: Internal QC Validated? YES +Cl - CLEAR BKGD; Pregnancy, Serum, hCG Quali. NEGATIVE Negative
[2020-02-18 03:32] LABS: ALB/GLOB Ratio 0.9 RATIO (0.9-2.4); AST(SGOT) 13 U/L (15-37); Alanine Aminotransfer ALT/SGPT 16 U/L (13-56); Albumin, Serum 3.8 g/dL (3.2-5.0); Alkaline Phosphatase 112 U/L (45-117); Anion Gap 6 (5-15); BUN 16 mg/dL (7-18); BUN/Creat Ratio 24.2 RATIO (10-20); Chloride 105 mmol/L (98-107); Creatinine, Serum 0.66 mg/dL (0.55-1.02); EST Glomerular Filtration Rate 120 mL/min (>60); Est Glom Filt Rate - Afr Amer 145 mL/min (>60); Estimated Creatinine Clearance 116.43 ml/min; Globulin 4.1 g/dL (2.2-4.2); Glucose 96 mg/dL (74-106); Lipase 106 U/L (73-393); Potassium 3.7 mmol/L (3.5-5.1); Protein, Total 7.9 g/dL (6.4-8.2); Sodium Level 138 mmol/L (136-145)
--- NOTE | 2020-02-18 03:38 | ED.DCSUM_ITS ---
History of Present Illness Chief Complaint: Abd Pain Narrative: Patient presenting for evaluation secondary to abdominal pain. Patient believes that she is having a gallbladder attack. Patient reports that a couple of weeks ago she had a similar presentation and was seen at an outside facility. She had a work-up including an ultrasound and was told that she has gallstones at that she should potentially follow-up with a general surgeon. Patient reports that tonight she had tacos for dinner. At about 1 AM she had a relatively sudden onset of right upper quadrant abdominal pain. This is moderate, is worse with palpation. It associated with some nausea. Patient denies any fever or diarrhea. Patient denies any history of abdominal surgeries. No sick contacts. No respiratory symptoms. Review of systems otherwise negative. Past Medical History - Allergies and Home Meds Allergies/Adverse Reactions: Allergies No Known Allergies Allergy (Verified 02/18/20 03:00) Primary Care Physician: Care Physician,No Primary [Primary Care Provider] - Past Medical History: None Surgical History: no surgical history Smoking Status: Current every day smoker Review of Systems All systems negative except as indicated General: Denies: Chills, Fever, Sweats Eyes: Denies: Visual changes - bilaterally, Diplopia ENT: Denies: Rhinorrhea, Sore throat Cardiovascular: Denies: Chest pain, Palpitations Respiratory: Denies: Dyspnea, Cough, Dyspnea on exertion Gastrointestinal: Reports: Abdominal pain, Nausea Genitourinary: Denies: Dysuria, Hematuria, Frequency Musculoskeletal: Denies: Back pain, Extremity Pain Skin: Denies: Rash, Wounds Neurological: Denies: Headache, Weakness, Numbness Physical Exam Vital Signs/Narrative: Vital Signs Temp Pulse Resp BP Pulse Ox 02/18/20 02:56 98 F 87 16 133/85 H 98 Inital Vital Signs reviewed: Yes General: Well nourished, Well developed, No Acute Distress Head: Normocephalic, Atraumatic Eyes: Perrl, EOMI. Negative for: Scleral icterus ENT: Moist mucous membranes, No rhinorrhea Neck: Supple, Nontender Cardiovascular: Regular rate, Regular rhythm, No murmurs Respiratory: No distress, CTA bilaterally, Chest nontender Abdomen: Soft, Nondistended, Normal bowel sounds, Tender - Right upper quadrant without guarding or rebound. Negative Falk sign. Back: Nontender, Normal Inspection Extremities: Nontender, No edema Skin: Normal color, No rash Neurological: Alert, Oriented x3, Cranial nerves II-XII grossly intact, Normal Strength, Normal Sensation Psychological: Normal affect, Normal Mood Diagnostic/Tx/Re-eval Laboratory Data 02/18/20 02/18/20 02/18/20 03:05 03:05 03:05 WBC 11.2 H RBC 4.16 L Hgb 11.7 L Hct 35.9 L MCV 86.3 MCH 28.1 MCHC 32.6 RDW Std Deviation 40.6 RDW Coeff of Satish 13.0 Plt Count 235 MPV 10.5 Immature Gran % (Auto) 0.300 Neut % (Auto) 64.7 Lymph % (Auto) 26.1 [place] % (Auto) 6.6 Eos % (Auto) 1.9 Baso % (Auto) 0.4 Absolute Neuts (auto) 7.2 Absolute Lymphs (auto) 2.92 Nucleated RBC % 0 Sodium 138 Potassium 3.7 Chloride 105 Carbon Dioxide 27.0 Anion Gap 6 BUN 16 Creatinine 0.66 Estim Creat Clear Calc 116.43 Est GFR (MDRD) Af Amer 145 Est GFR (MDRD) Non-Af 120 BUN/Creatinine Ratio 24.2 H Glucose 96 Calcium 9.0 Total Bilirubin 0.20 AST 13 L ALT 16 Alkaline Phosphatase 112 Total Protein 7.9 Albumin 3.8 Globulin 4.1 Albumin/Globulin Ratio 0.9 Lipase 106 Serum , Qual NEGATIVE - Medical Decision Making Patient presented with right upper quadrant abdominal pain. I performed a bedside ultrasound on the patient. It showed a moderately distended gallbladder with a 3 mm gallbladder wall, no pericholecystic fluid, the patient does have a gallstone with no dilation of the common bile duct. She has a very minimal sonographic Falk sign. CBC chemistry lipase and test all obtained which were found to be unremarkable. Patient had improvement of her pain. Patient likely at this point has biliary colic secondary to gallstones, but does not seem to have evidence of cholecystitis. Patient will be given a referral to general surgery. She will be discharged with a course of Toradol for pain control, she was recommended a low-fat diet and was educated on signs and symptoms which to return to the emergency department. Patient voiced understanding of these in her own terms, the patient was discharged in stable condition. ED Disposition - Plan for ED Patient: Disposition: Home or Assisted Living Diagnosis: Biliary colic, Gallstones Instructions: ED Gallstones with Biliary Colic Prescriptions: Ketorolac [Toradol] 10 mg PO Q6H PRN #20 tab PRN Reason: Pain Or Fever Transmission Status: Pending to [facility] #30 Referrals: Deyanira Banda MD [STAFF PHYSICIAN] - 1 Week
[2020-02-18 03:48] VITALS: BP 121/71; PULSE 82; RESP 17; O2SAT 98
== END 2020-02-18 03:49 | disposition home or self-care (01) ==
PROVIDERS: Emergency Provider Emergency Medicine
DX: K80.70 Calculus of gallbladder and bile duct without cholecystitis without obstruction (principal); F17.200 Nicotine dependence, unspecified, uncomplicated
CPT/HCPCS: 80053; 83690; 84703; 85025; 96365; 96375; 99283; A4216; J2405